=== PATIENT | male | born 1990 | race African-American/Black ===

== ENCOUNTER 2021-10-03 08:00 | Emergency (ER) | payer SELFPAY ==
[~2021-10-03] VITALS: Ht 167.6 cm; Wt 72.7 kg
--- NOTE | 2021-10-03 08:27 | PHYS DOC ---
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 Started this morning when waking up. [place] fine going to bed last night. Pain is sharp. Epigastric. Does not radiate. Has never experienced this pain before. Feels hot, but no measured fevers. No chills. No nausea or vomiting. Has had episodes of diarrhea this morning. Denies significant medical or surgical history. Has been approximately 2 weeks clean from IV methamphetamine use. Review of Systems: Review of Systems: Constitutional: Denies fever or chills. [] Eyes: Denies change in visual acuity. [] HENT: Denies nasal congestion or sore throat. [] Respiratory: Denies cough or shortness of breath. [] Cardiovascular: Denies chest pain or edema. [] GI: Reports abdominal pain and diarrhea : Denies dysuria. [] Musculoskeletal: Denies back pain or joint pain. [] Integument: Denies rash. [] Neurologic: Denies headache, focal weakness or sensory changes. [] Psychiatric: Denies depression or anxiety. [] Heart Score: C/O Chest Pain: No Current Medications: Current Medications Medications (Trade) Dose Ordered Sig/Pierre Start Time Stop Time Status Last Admin Dose Admin Morphine Sulfate (Morphine Sulfate) 4 mg 1X ONCE 10/03/21 08:15 10/03/21 08:16 DC Sodium Chloride 1,000 ml @ 1,000 mls/hr 1X ONCE 10/03/21 08:15 10/03/21 09:14 Allergies: Allergies: Allergies Coded Allergies Type Severity Reaction Last Updated Verified No Known Drug Allergies 10/03/21 No Physical Exam: PE: Constitutional: Moaning in discomfort, nontoxic appearing Neck: Normal range of motion, no tenderness, supple, no stridor. [] Cardiovascular:Heart rate regular rhythm, no murmur [] Lungs & Thorax: Bilateral breath sounds clear to auscultation [] Abdomen: Soft, nondistended. Epigastric tenderness to palpation with moaning and voluntary guarding. Skin: Warm, dry, no erythema, no rash. [] Extremities: No tenderness, no cyanosis, no clubbing, ROM intact, no edema. [] Neurologic: Alert and oriented X 3, normal motor function, normal sensory function, no focal deficits noted. [] Psychologic: Affect normal, judgement normal, mood normal. [] Current Patient Data: Vital Signs: Vital Signs Date Time Temp Pulse Resp B/P (MAP) Pulse Ox O2 Delivery O2 Flow Rate FiO2 10/03/21 08:11 97.7 97 20 165/93 (117) 100 Room Air 97.7 EKG: EKG: [] Radiology/Procedures: Radiology/Procedures: [] Impression: [facility] [address] [place] [address] IMAGING REPORT Signed PATIENT: BELTRAN ORDAZCOUNT: [id number] : 1990 LOCATION: ER AGE: 31 SEX: M EXAM STATUS: REG ER ORD. PHYSICIAN: TONG YEPEZ MD REASON: upper abd pain, diarrhea PROCEDURE: CT ABDOMEN PELVIS WO CONTRAST EXAM: Abdomen and pelvis CT without intravenous contrast. HISTORY: Pain and diarrhea. TECHNIQUE: Computed tomographic images of the abdomen and pelvis were obtained without contrast. Multiplanar reformatting was performed. *One or more of the following individualized dose reduction techniques were utilized for this examination: 1. Automated exposure control. 2. Adjustment of the mA and/or kV according to patient size. 3. Use of iterative reconstruction technique. COMPARISON: None. FINDINGS: Evaluation of the lower thorax is unremarkable. No hepatic lesion is seen. The gallbladder, pancreas, spleen, adrenal glands and kidneys are unremarkable. The stomach is unremarkable. There is no evidence of bowel obstruction. The appendix is partially visualized. There are no secondary findings to suggest appendicitis. The aorta is normal in caliber. There is no lymphadenopathy. The urinary bladder is unremarkable. There is no suspicious osseous finding. IMPRESSION: No convincing acute abdominal or pelvic finding. Electronically signed by: Aysha Valenzuela MD (10/03/2021 10:09 AM) [id number] DICTATED and SIGNED BY: AYSHA VALENZUELA MD DATE: 10/03/21 [id number] 0 Course & Med Decision Making: Course & Med Decision Making Pertinent Labs and Imaging studies reviewed. (See chart for details) Patient is a 31-year-old male with history of IV methamphetamine abuse, now 2 weeks clean who presents with acute onset epigastric pain and diarrhea this morning. DDx includes pancreatitis, cholelithiasis, cholecystitis, gastritis, g astroenteritis, atypical presentation of diverticulitis. Patient was difficult IV access due to his IVDU history, and EJ was placed for access, which did not allow for contrasted CT. For this limitation, CT did not show any acute process. Labs including WBC, LFTs, and lipase were also reassuring. No definitive etiology for pain was identified, however, this may represent gastritis/gastroenteritis given his described diarrhea. 1028 Dragon Disclaimer: Dragon Disclaimer: This electronic medical record was generated, in whole or in part, using a voice recognition dictation system. Departure Departure Impression: Primary Impression: Epigastric abdominal pain Additional Impression: Diarrhea Disposition: 01 HOME / SELF CARE / HOMELESS Condition: STABLE Patient Instructions: Viral Gastroenteritis Additional Instructions: For pain tylenol and ibuprofen are best used on a schedule. Please alternate between the two. -Tylenol 1000 mg every 6 hours (do not exceed 4000 mg in one day) -Ibuprofen 400 mg every 6 hours. Take with food. Do not take for more than 1 week. TONG YEPEZ MD Oct 03, 2021 08:27
[2021-10-03] MEDS: MORPHINE SULFATE 4 MG/ML INJ. IVP ONE (09:01)
[2021-10-03] MEDS: IV NORMAL SALINE 1000ML BAG 1,000 ML IV ONE (09:02)
[2021-10-03 09:09] LABS: BASO % 0 % (0-3); EOS % 0 % (0-3); HEMATOCRIT 43.9 % (39.0-53.0); HEMOGLOBIN 14.1 g/dL (13.0-17.5); LYMPH # 1.6 x10^3/uL (1.0-4.8); LYMPH % 21 % (24-48); MEAN CORPUSCULAR HEMOGLOBIN 27 pg (25-35); MEAN CORPUSCULAR HGB CONC 32 g/dL (31-37); MEAN CORPUSCULAR VOLUME 85 fL (79-100); MONO # 0.4 x10^3/uL (0.0-1.1); MONO % 6 % (0-9); NEUT # 5.6 x10^3/uL (1.8-7.7); NEUT % 73 % (31-73); PLATELET COUNT 267 x10^3/uL (140-400); RED BLOOD COUNT 5.18 x10^6/uL (4.30-5.70); RED CELL DISTRIBUTION WIDTH 14.1 % (11.5-14.5); WHITE BLOOD COUNT 7.7 x10^3/uL (4.0-11.0)
[2021-10-03 09:25] LABS: CALCIUM 8.6 mg/dL (8.5-10.1); CREATININE 1.1 mg/dL (0.7-1.3); GFR 94.5; POTASSIUM 4.3 mmol/L (3.5-5.1)
[2021-10-03 09:30] LABS: ALBUMIN 3.8 g/dL (3.4-5.0); ALBUMIN/GLOBULIN RATIO 0.9 (1.0-1.7); TOTAL BILIRUBIN 0.2 mg/dL (0.2-1.0)
--- NOTE | 2021-10-03 10:12 | RAD ---
EXAM: Abdomen and pelvis CT without intravenous contrast. HISTORY: Pain and diarrhea. TECHNIQUE: Computed tomographic images of the abdomen and pelvis were obtained without contrast. Mult iplanar reformatting was performed. *One or more of the following individualized dose reduction techniques were utilized for this examina tion: 1. Automated exposure control. 2. Adjustment of the mA and/or kV according to patient size. 3. Use of iterative reconstruction technique. COMPARISON: None. FINDINGS: Evaluation of the lower thorax is unremarkable. No hepatic lesion is seen. The gallbladder, pancreas, spleen, adrenal glands and kidneys are unremarkable. The stomach is unremarkable. There is no evidence of bowel obstruction. The appendix is partially visualized. There are no secondary findings to suggest appendicitis. The ao rta is normal in caliber. There is no lymphadenopathy. The urinary bladder is unremarkable. There is no suspicious osseous finding. IMPRESSION: No convincing acute abdominal or pelvic finding. Electronically signed by: Aysha Valenzuela MD (10/03/2021 10:09 AM) [id number]
[2021-10-03 10:28] VITALS: BP 117/63
--- NOTE | 2021-10-03 17:49 | NUR ---
IP: Attempted to contact pt concerning covid results. No answer, no voicemail box set up.
--- NOTE | 2021-10-04 17:56 | NUR ---
IP: Informed pt of negative covid test. Pt verbalized understanding.
== END 2021-10-03 10:58 | disposition home or self-care (01) ==
LOC: ER 08:00
DX: R10.13 Epigastric pain (principal); R19.7 Diarrhea, unspecified; Z20.822 Contact with and (suspected) exposure to COVID-19; F15.10 Other stimulant abuse, uncomplicated; F17.200 Nicotine dependence, unspecified, uncomplicated
CPT/HCPCS: 36415; 74176; 80053; 83690; 85025; 87426; 96361; 96374; 99284; J2270; J7030; U0003; U0005; 99285-25